=== PATIENT | male | born 1995 | race Caucasian/White ===

== ENCOUNTER 2023-10-29 16:44 | Inpatient (IN) ==
--- NOTE | 2023-10-29 16:52 | ED Triage Note ---
Date of Service October 29, 2023 Provider in Triage Author: Dominique Benton History of Present Illness This patient was briefly evaluated while in triage. An abbreviated physical exam was performed. This patient is a 28-year-old Male who presents to the ED for evaluation sent [place] with LLE DVT was having LLE pain x couple weeks had complicated laceration near left knee end of August +family history of blood clots in father, no personal history Physical Exam GENERAL: NAD in wheelchair CARDIOVASCULAR: RRR RESPIRATORY: CTA EXT: healing scar medial left knee. Mild left calf and thigh TTP, no erythema, increased warmth or pitting edema, no palpable cords. Initial orders for labs and / or imaging were placed and patient was placed in the waiting area until a bed is available. Please see further documentation for the full ED course.
[2023-10-29 17:29] LABS: Basophils # (auto) 0.02 K/uL (0.00-0.20); Basophils % (auto) 0.2 %; Eosinophils # (auto) 0.08 K/uL (0.00-0.50); Eosinophils % (auto) 0.7 %; Hematocrit (blood only) 41.1 % (42.0-52.0); Hemoglobin 13.8 g/dl (14.0-18.0); Immature Granulocytes # (auto) 0.07 K/uL (0.01-0.20); Immature Granulocytes % (auto) 0.6 %; Lymphocytes # (auto) 1.76 K/uL (1.20-3.40); Lymphocytes % (auto) 15.7 %; Mean Corpuscular Hemoglobin 30.1 pg (25.0-34.0); Mean Corpuscular Hgb Conc 33.6 g/dL (32.0-36.0); Mean Corpuscular Volume 89.5 fL (80.0-100.0); Mean Platelet Volume 9.1 fL (9.4-12.4); Monocytes # (auto) 1.04 K/uL (0.11-0.59); Monocytes % (auto) 9.3 %; Neutrophils # (auto) 8.24 K/uL (1.40-6.50); Neutrophils % (auto) 73.5 %; Platelet Count 299 K/uL (130-400); RDW Coefficient of Variation 11.5 % (11.5-14.5); RDW Standard Deviation 37.3 fL (36.4-46.3); Red Blood Count 4.59 M/uL (4.70-6.10); White Blood Count 11.21 K/ul (4.8-10.8)
[2023-10-29 17:49] LABS: Albumin Globulin Ratio 1.1 (0.9-2); Albumin Level 4.6 gm/dl (3.4-5.0); BUN Creatinine Ratio 9.2 (10-20); Calcium 9.9 mg/dl (8.6-10.3); Creatinine Clr Calc Pharmacy 203.1 ml/min; Est GFR (African American) 145.9 ml/min; Est GFR (Non-African American) 125.9 ml/min; Globulin 4.1 gm/dl (2.5-4.0); Potassium 4.1 mmol/L (3.5-5.1); Total Protein 8.7 gm/dl (6.0-8.3)
[2023-10-29 17:54] LABS: Partial Thromboplastin Ratio 1.1; Partial Thromboplastin Time 30 Seconds (21-31); Prothrombin Time 10.6 Seconds (9.0-12.0)
[2023-10-29 17:56] LABS: Troponin I High Sensitivity 3.7 pg/ml (0-20)
[2023-10-29] MEDS: OPTIRAY 320 125ml IV ONE (18:12)
--- NOTE | 2023-10-29 18:27 | CT Scan Report ---
CT ANGIOGRAPHY OF THE CHEST, PULMONARY EMBOLUS PROTOCOL CLINICAL HISTORY: Left lower extremity DVT. COMPARISON STUDY: No previous studies for comparison. TECHNIQUE: Following IV administration of 119 mL of Optiray, helical axial images of the chest were o btained utilizing the pulmonary embolus protocol. Maximal intensity projections and sagittal and cor onal reformats were viewed on an independent 3D workstation. IV contrast was administered without co mplication. Automated exposure control was utilized for the study. A dose lowering technique was ut ilized adhering to the principles of ALARA. CT DOSE: 1065.27 mGy.cm FINDINGS: A saddle pulmonary embolus is noted. Emboli extend into the interlobar pulmonary arteries as well as the bilateral lower lobe, left upper lobe and right middle lobe pulmonary arteries. Severa l additional smaller segmental and subsegmental pulmonary emboli are identified. There are no pulmona ry infarct. The lungs are clear. There is no pneumothorax or pleural effusion. There is no CT evidenc e for right heart strain. Size the heart is normal. Visualized portions of the upper abdomen are unre markable. IMPRESSION: Numerous bilateral pulmonary emboli, including a saddle pulmonary embolus, as detailed a kwame. Moderate to extensive clot burden. No pulmonary infarcts. No CT evidence for right heart strain . ACT 112: Negative or not required by law. Electronically signed by: Quincy Perales M.D. 10/29/2023 6:25 PM
[2023-10-29] MEDS: HEPARIN SOD (PORCINE) 1000 UNIT/ML IV ONE (18:48)
[2023-10-29] MEDS: HEPARIN SODIUM/DEXTROSE 25,000 UNITS/500 ML BAG IV SCH (18:49)
--- NOTE | 2023-10-29 18:57 | History & Physical Report ---
Date of Service October 29, 2023 Assessment & Plan (1) Saddle pulmonary embolus: Plan: Saddle PE CTA with multiple bilateral PE, and saddle PE with moderate to extensive clot burden Troponin normal. No CT evidence of heart strain Patient has not been hypotensive at any point. He is satting 100% on room air. Thrombolysis not indicated Admitted to PCU on heparin gtt. Has associated left lower extremity DVT on prior ultrasound. DVT occurred in setting of prior leg trauma and complicated laceration -Patient has a family history of blood clots in his father. Given extensive burden, patient concern for ongoing anticoagulation needs did order initial hypercoagulable workup. Lupus anticoagulant deferred as heparin was already started Patient is not hypoxic and does not have any respiratory symptoms Lower extremity DVT, left lower leg With prior history of traumatic injury requiring staple repair. Well-healing and no signs of infection at time of bedside visit After injury and repair patient did have leg immobilized and went for 2-hour r nevin up to his camp and back. Likely precipitating factors for his saddle PE above Plan DVT prophylaxis: Heparinized Diet: Regular CODE STATUS: PCU for saddle PE History of Present Illness Primary Care Provider: Brendan Scott MD Gen is a 28-year-old male with unremarkable past medical history who presents to the ER for suspected PEs. Has had left lower extremity pain for several weeks and had a complicated laceration to his left knee at the end of August. CT shows numerous bilateral pulmonary emboli including a saddle PE with moderate to extensive clot burden. No pulmonary infarct. No CT evidence of heart strain. Troponin is normal. He is not hypotensive +History of DVT/PE on fathers side of the family. Not sure about mothers side. - Vaping nicotine and weed. No cigarette use. Vapes daily. ETOH previously daily, now rarely socially. No hx withdrawal - After his leg injury and stitches did hav ea 2 hour trip to his camp in the end of August. Has had the leg relatively immobilized until this past week when he tried to walk on it. Has noticed discomfort and swelling in the calf. No dyspnea. No inspiratory pain. He reports he has not had any limiting shortness of breath at any point, the cause of his presentation was actually bc WEnt to his PCP for severe LE pain, had a US with clot and was referred to the ER Medical History: Reviewed Medications: Reviewed. No home meds. Only takes tylenol Surgical History: Reviewed Family history: Reviewed Allergies: Reviewed. NKDA Code Status: Full Allergies Allergy/AdvReac Type Severity Reaction Status Date / Time No Known Allergies Allergy Verified 10/29/23 19:08 Home Medications Medication Instructions Recorded Confirmed Type Thc Product 1 dose inhalation UD PRN Pain/SLEEP 09/27/21 10/29/23 History acetaminophen 500 mg tablet 1,500 mg PO Q6H PRN Pain 10/29/23 10/29/23 History (Tylenol Extra Strength) Past Med/Surg History Problem List (Updated 10/29/23 @ 19:09 by Ubaldo Estevez MD) Saddle pulmonary embolus Laceration of left leg Periumbilical pain Nausea & vomiting Acute lateral meniscus tear of right knee Corneal abrasion (Acute) Facial laceration (Acute) Rhomboid muscle strain (Acute) Plantar warts (Acute) Pharyngitis (Acute) Patella fracture (Acute) 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 Rhus dermatitis Warts Close exposure to COVID-19 virus Flu-like symptoms Medical History Irregular heart beat Tear of lateral meniscus of right knee, current Heart murmur Surgical History No pertinent past surgical history Family History Grandmother Family history of colon cancer Other No pertinent family history Social History Smoking Status: Current every day smoker Tobacco Type: E-cigarettes / Vaping Age Started Using Tobacco: 20; Cigarettes Per Day: VAPE DAILY/ADVISED NPO; Do You Dip or Chew Tobacco: No; Hx Alcohol Use: Yes Alcohol type: beer, wine and hard liquor Hx Substance Use: No Preferred Language: Portuguese Communication Ability: Effective Visual Impairment: No Limitations Hearing Ability: Normal Net Mobile Developer Required: No Beliefs That Will Affect Care: None marital status: Single Current Living Situation: Parent Current Living Situation Comment: PARENTS current occupational status: employed 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 NAD. Cooperative. HEENT: Atraumatic, normocephalic. Pulm: CTAB A&P. -wheezes, -rales, -rhonchi. Symmetrical chest rise. No increased work of breathing. No respiratory distress. Cardiac: RRR, -mrg. Radial pulses intact and symmetrical. Abdominal: Nontender, nondistended, soft. BS present. Left lower extremity is with a stable repair of prior wound, 2 areas of scab. No surrounding warmth, tenderness or erythema. There is mild left lower extremity swelling. Results & Data Results & Data Vital Signs (Past 12 Hours) Vital Signs Temp Pulse Pulse Resp BP BP Pulse Ox 10/29/23 18:31 75 10/29/23 18:21 77 16 100 10/29/23 18:21 77 16 159/109 H 100 10/29/23 16:50 36.5 C 86 18 135/90 99 O2 Del Method 10/29/23 18:31 10/29/23 18:21 Room Air 10/29/23 18:21 Room Air 10/29/23 16:50 Room Air PG Care Time/CCT Total # of Minutes Spent Total Time Spent with Patient: Total time spent is greater than 50% in coordination of care (as documented) at patient's floor/unit and/or counseling patient: Coding Level of Care Code 70820 INT INP/OBS CARE 3/75MIN Diagnoses Saddle pulmonary embolus I26.92
--- NOTE | 2023-10-29 19:08 | Emergency Department Note ---
Impression & Plan Pulmonary emboli, DVT (deep venous thrombosis), Leukocytosis ED Provider Note NAME: RAFFY ARDON AGE: 28 SEX: M : 1995 ARRIVES VIA: Walk-In INFORMANT: [Patient] ED PROVIDER(S): [Brendan Hall MD] CHIEF COMPLAINT: Abnormal testing HISTORY OF PRESENT ILLNESS: The patient is a 28-year-old male who states that about a month ago, he had stitches in his left leg. It was a significant injury and he was off his leg for a few weeks. 2 weeks ago, he went back to work and began noticing some swelling and discomfort in the left leg. Things persisted. Today, he had an outpatient ultrasound of his leg showing a DVT, he was referred to the ER. The patient states that he is never had a DVT before. He states he is otherwise healthy. He does not feel short of breath, he does not have any chest pain. There has been no cough or congestion. No fever. PMHx/PSHx/Social Hx: See Below PHYSICAL EXAM: GENERAL: Patient is in no acute distress. HEENT: No acute trauma, normocephalic atraumatic, mucous membranes moist, no nasal congestion. NECK: No stridor, no adenopathy, no meningismus, trachea is midline. LUNGS: Clear to auscultation bilaterally, no wheeze, no rhonchi, breath sounds equal. HEART: Without murmurs gallops or rubs, regular rate and rhythm. ABDOMEN: Soft, nontender, no peritonitis. EXTREMITIES: No cyanosis, full range of motion of all the joints without pain or difficulty. The left lower extremity is edematous when compared to the right. NEUROLOGIC: Oriented x 3, no acute motor or sensory deficits, no focal weakness. SKIN: No jaundice, no diaphoresis. DIFFERENTIAL DIAGNOSIS: DVT, PE, coagulopathy, cellulitis, venous insufficiency, among others. EMERGENCY DEPARTMENT PROCEDURES: MEDICAL DECISION MAKING: There is a mild leukocytosis, this could be consistent with infection or just the stress of his presentation. There is a very mild anemia. There was a normal platelet count. No coagulopathy. Sodium slightly low but not in need of emergent correction. There was no renal failure. Lactic acid level was not elevated making severe sepsis unlikely. There was no concerning liver enzyme elevation. Cardiac enzyme testing x 1 was not consistent with acute cardiac injury. ECG showed a sinus rhythm, no ischemia. Chest CT shows multiple pulmonary emboli as well as a saddle pulmonary embolus. Patient did present with findings of left leg DVT by outpatient ultrasound. On exam, the patient was without shortness of breath. He was not hypoxic or toxic. He was not tachycardic. He denied chest pain. He did have some left leg edema. The patient is in need of a hospital stay. He was given an IV heparin bolus and placed on a heparin drip. I did speak with the patient about his findings, I did speak with case management. The on-call hospitalist has been consulted. The patient may be best cared for in the ICU given the DVT and saddle pulmonary embolus. Currently, I do not think he requires transfer to a tertiary center. Anticoagulation is the treatment for his findings. This can be accomplished at our hospital. Prior/Outside records/notes reviewed: None ECG per my interpretation: Indication was PE. The ECG shows a normal sinus rhythm with a rate of 85. There was no acute ST elevation, no PVCs. The QTc was 430. Continuous Cardiac Monitoring per my interpretation: An order was placed for continuous cardiac monitoring. The monitor shows a rate of 75 with normal sinus rhythm. Imaging/x-ray results per my interpretation: Chronic Medical/Social conditions affecting care: None Care/Management discussed with: Case management, the on-call hospitalist. Level of care consideration(s): After review of the information above and other included data: --I believe the patient requires escalation of care to admission Critical Care Note: I have personally spent 48 minutes of critical care time in the direct management of this patient. This includes bedside care, interpretation of diagnostic studies, and testing, discussion with consultants, patient, and family members, and other required patient management activities. This 48 minutes is in excess of all separately billable procedures. 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 Rhus dermatitis Warts Close exposure to COVID-19 virus Flu-like symptoms Medical History Irregular heart beat 2 YR AGO, PT WAS TOLD HAPPENS SOMETIMES, WILL WORK ITSELF OUT - NO PROBLEMS WITH - FOLLOWS PCP Tear of lateral meniscus of right knee, current Heart murmur PATIENT DENIES Surgical History No pertinent past surgical history Family History Grandmother Family history of colon cancer Other No pertinent family history Social History Smoking Status: Never smoker Tobacco Type: E-cigarettes / Vaping and Smokeless Tobacco (Dip or Chew) Age Started Using Tobacco: 20; Cigarettes Per Day: VAPE DAILY/ADVISED NPO; Second Hand Exposure: No; Do You Dip or Chew Tobacco: Yes; Tobacco Cessation Education Requested by Patient: No Hx Alcohol Use: Yes Alcohol type: beer and wine Hx Substance Use: Yes Last Used Substance: Hours (ago) Substance Use Type Other:: THC Preferred Language: [place]an Communication Ability: Effective Visual Impairment: No Limitations Hearing Ability: Normal 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 Beliefs That Will Affect Care: None marital status: Single Current Living Situation: Alone Current Living Situation Comment: PARENTS current occupational status: employed current occupation: [employer] How many Children do You have: 0 How many Children do You have Comment: 0 Other Information That Helps Us Care for You: No Feels Safe at Home: Yes Safety Concerns: Feels Safe At This Time Childhood Exposure to Second-Hand Smoke: No Diet: lactose free and regular caffeine: Yes Dental Care, Regularly: No Physical Activity Frequency: 3-4 Times per Week 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 Seatbelt Use: sometimes Sunscreen Use: No Assistive Devices: None Allergies Allergies Allergy/AdvReac Type Severity Reaction Status Date / Time No Known Allergies Allergy Verified 10/29/23 19:08 Home Meds Home Medications Medication Instructions Recorded Confirmed Thc Product 1 dose inhalation UD PRN Pain/SLEEP 09/27/21 10/29/23 acetaminophen 500 mg tablet 1,500 mg PO Q6H PRN Pain 10/29/23 10/29/23 (Tylenol Extra Strength) Results & Data (ED) Vital Signs Vital Signs - 24 hr 10/29/23 16:50 10/29/23 18:21 10/29/23 18:21 Temperature 36.5 C Temperature Source Temporal Artery Scan Pulse Rate 86 77 Pulse Rate [Apical] 77 Pulse Rate from SpO2 Sensor Pulse Rhythm [Apical] Pulse Strength [Apical] Respiratory Rate 18 16 16 Respiratory Effort / Characteristics Non-Labored Respiratory Depth Normal Respiratory Pattern Regular Blood Pressure 135/90 Blood Pressure [Left Arm] 159/109 H Blood Pressure Mean 105 Blood Pressure Mean [Left Arm] 125 Blood Pressure Position [Left Arm] Pulse Oximetry 99 100 100 Oxygen Delivery Method Room Air Room Air Room Air Sepsis Recent Fever Within 48 Hours No Sepsis New/Unexplained Change in Mental Status N/A Sepsis Action Taken by Nursing No Action Required 10/29/23 18:31 10/29/23 18:42 10/29/23 18:54 Temperature Temperature Source Pulse Rate 75 80 82 Pulse Rate [Apical] Pulse Rate from SpO2 Sensor 79 82 Pulse Rhythm [Apical] Pulse Strength [Apical] Respiratory Rate 21 27 H Respiratory Effort / Characteristics Respiratory Depth Respiratory Pattern Blood Pressure Blood Pressure [Left Arm] Blood Pressure Mean Blood Pressure Mean [Left Arm] Blood Pressure Position [Left Arm] Pulse Oximetry 98 99 Oxygen Delivery Method Sepsis Recent Fever Within 48 Hours Sepsis New/Unexplained Change in Mental Status Sepsis Action Taken by Nursing 10/29/23 18:56 10/29/23 18:56 10/29/23 18:57 Temperature Temperature Source Pulse Rate 83 Pulse Rate [Apical] Pulse Rate from SpO2 Sensor 81 Pulse Rhythm [Apical] Pulse Strength [Apical] Respiratory Rate 22 Respiratory Effort / Characteristics Respiratory Depth Respiratory Pattern Blood Pressure 126/86 126/86 Blood Pressure [Left Arm] Blood Pressure Mean 90 90 Blood Pressure Mean [Left Arm] Blood Pressure Position [Left Arm] Pulse Oximetry 99 Oxygen Delivery Method Sepsis Recent Fever Within 48 Hours Sepsis New/Unexplained Change in Mental Status Sepsis Action Taken by Nursing 10/29/23 19:00 10/29/23 19:00 10/29/23 19:06 Temperature Temperature Source Pulse Rate 77 Pulse Rate [Apical] Pulse Rate from SpO2 Sensor 79 Pulse Rhythm [Apical] Pulse Strength [Apical] Respiratory Rate 16 Respiratory Effort / Characteristics Respiratory Depth Respiratory Pattern Blood Pressure 122/87 122/87 Blood Pressure [Left Arm] Blood Pressure Mean 93 93 Blood Pressure Mean [Left Arm] Blood Pressure Position [Left Arm] Pulse Oximetry 100 Oxygen Delivery Method Sepsis Recent Fever Within 48 Hours Sepsis New/Unexplained Change in Mental Status Sepsis Action Taken by Nursing 10/29/23 19:19 Temperature Temperature Source Pulse Rate Pulse Rate [Apical] 80 Pulse Rate from SpO2 Sensor Pulse Rhythm [Apical] Regular Pulse Strength [Apical] Normal Respiratory Rate 18 Respiratory Effort / Characteristics Non-Labored Spontaneous Respiratory Depth Normal Respiratory Pattern Regular Blood Pressure Blood Pressure [Left Arm] 122/87 Blood Pressure Mean Blood Pressure Mean [Left Arm] 98 Blood Pressure Position [Left Arm] Sitting Pulse Oximetry 98 Oxygen Delivery Method Room Air Sepsis Recent Fever Within 48 Hours Sepsis New/Unexplained Change in Mental Status Sepsis Action Taken by Usp Medications Current Medication List: was personally reviewed by me Laboratory Data Attestation: I reviewed the patient's lab results. 10/29/23 17:13 10/29/23 17:13 Lab Results 10/29/23 Range/Units 17:13 WBC 11.21 H (4.8-10.8) K/ul RBC 4.59 L (4.70-6.10) M/uL Hgb 13.8 L (14.0-18.0) g/dl Hct 41.1 L (42.0-52.0) % MCV 89.5 (80.0-100.0) fL MCH 30.1 (25.0-34.0) pg MCHC 33.6 (32.0-36.0) g/dL RDW Std Deviation 37.3 (36.4-46.3) fL RDW Coeff of Racquel 11.5 (11.5-14.5) % Plt Count 299 (130-400) K/uL MPV 9.1 L (9.4-12.4) fL Immature Gran % (Auto) 0.6 % Neut % (Auto) 73.5 % Lymph % (Auto) 15.7 % [place] % (Auto) 9.3 % Eos % (Auto) 0.7 % Baso % (Auto) 0.2 % Neut # (Auto) 8.24 H (1.40-6.50) K/uL Lymph # (Auto) 1.76 (1.20-3.40) K/uL [place] # (Auto) 1.04 H (0.11-0.59) K/uL Eos # (Auto) 0.08 (0.00-0.50) K/uL Baso # (Auto) 0.02 (0.00-0.20) K/uL Immature Gran # (Auto) 0.07 (0.01-0.20) K/uL PT 10.6 (9.0-12.0) Seconds INR 1.0 (0.9-1.1) APTT 30 (21-31) Seconds PTT Ratio 1.1 Sodium 135 L (136-145) mmol/L Potassium 4.1 (3.5-5.1) mmol/L Chloride 100 (98-107) mmol/L Carbon Dioxide 25 (21-32) mmol/L Anion Gap 10 (3-11) BUN 7 (6-23) mg/dl Creatinine 0.76 (0.6-1.4) mg/dl Est Cr Clr Drug Dosing 203.1 ml/min Est GFR ( Amer) 145.9 ml/min Est GFR (Non-Af Amer) 125.9 ml/min BUN/Creatinine Ratio 9.2 L (10-20) Glucose 80 (70-99(Fasting)) mg/dl Calcium 9.9 (8.6-10.3) mg/dl Total Bilirubin 1.0 (0.2-1.0) mg/dl AST 15 (13-39) U/L ALT 14 (7-52) U/L Alkaline Phosphatase 69 (34-104) U/L Troponin I High Sens 3.7 (0-20) pg/ml Total Protein 8.7 H (6.0-8.3) gm/dl Albumin 4.6 (3.4-5.0) gm/dl Globulin 4.1 H (2.5-4.0) gm/dl Albumin/Globulin Ratio 1.1 (0.9-2) Administered Medications Nicotine (Nicotine 14 Mg/24 Hr Patch) 1 patch TD QAM NAOMI Stop: 11/28/23 21:44 Last Admin: 10/29/23 23:46 Dose: 1 patch Documented By: JT Discontinued Medications Heparin Sodium (Porcine) (Heparin Sod (Porcine) 1000 Unit/Ml) 1 units IV NOW ONE Stop: 10/29/23 18:51 Last Admin: 10/29/23 18:48 Dose: 5,000 units Documented By: CARLOS Co-signed By: LIANNA Heparin Sodium/Dextrose (Heparin Iv Adult Wt-Based Standard W/ Initial Bolus Protocol) 1 each IV NOW STA; Protocol Stop: 10/29/23 18:36 Last Admin: 10/29/23 20:12 Dose: Not Given Documented By: DIAZ Heparin Sodium/Dextrose (Heparin Iv Adult Wt-Based Low-Dose *No* Initial Bolus Protocol) 1 each IV ONE ONE; Protocol Stop: 10/29/23 22:46 Last Admin: 10/29/23 23:48 Dose: 1 each Documented By: CHRISTIANO Heparin Sodium/Dextrose (Heparin Sodium/Dextrose) 25,000 units in 500 mls @ 0 mls/hr IV .Q0M NAOMI; Protocol Stop: 11/28/23 18:59 Last Titration: 10/30/23 00:15 Dose: Infused Documented By: CHRISTIANO Co-signed By: BRADEN Titration: 10/29/23 20:37 Dose: 0 units/hr, 0 mls/hr Documented By: DIAZ Co-signed By: DIONICIO Admin: 10/29/23 18:49 Dose: 1,750 units/hr, 35 mls/hr Documented By: CARLOS Co-signed By: LIANNA Lactated Ringer's (Lr) 1,000 mls @ 999 mls/hr IV .Q1H1M ONE Stop: 10/29/23 21:09 Last Infusion: 10/29/23 20:38 Dose: 0 mls/hr Documented By: Admin: 10/29/23 20:27 Dose: 999 mls/hr Documented By: AIRAM Alteplase, Recombinant 50 mg/ (EMPTY BAG) 50 mls @ 25 mls/hr IV NOW ONE; Protocol Stop: 10/29/23 23:29 Last Admin: 10/29/23 21:56 Dose: 25 mls/hr Documented By: CHRISTIANO Ioversol (Optiray 320 125ml) 119 ml IV ONCE ONE Stop: 10/29/23 18:12 Last Admin: 10/29/23 18:12 Dose: 119 ml Documented By: JUANCARLOS Miscellaneous Information (Dc All Anticoagulants ) 1 each N/A NOW STA Stop: 10/29/23 21:22 Last Admin: 10/29/23 22:30 Dose: 1 each Documented By: CHRISTIANO Sodium Chloride (Sodium Chloride 0.9% 50 Ml Bag) 50 ml IV NOW ONE Stop: 10/29/23 21:31 Last Admin: 10/29/23 21:57 Dose: 50 ml Documented By: CHRISTIANO Imaging Data Radiologist's Impression: Chest CTA 10/29/23 16:53 CT ANGIOGRAPHY OF THE CHEST, PULMONARY EMBOLUS PROTOCOL CLINICAL HISTORY: Left lower extremity DVT. COMPARISON STUDY: No previous studies for comparison. TECHNIQUE: Following IV administration of 119 mL of Optiray, helical axial images of the chest were obtained utilizing the pulmonary embolus protocol. Maximal intensity projections and sagittal and coronal reformats were viewed on an independent 3D workstation. IV contrast was administered without complication. Automated exposure control was utilized for the study. A dose lowering technique was utilized adhering to the principles of ALARA. CT DOSE: 1065.27 mGy.cm FINDINGS: A saddle pulmonary embolus is noted. Emboli extend into the interlobar pulmonary arteries as well as the bilateral lower lobe, left upper lobe and right middle lobe pulmonary arteries. Several additional smaller segmental and subsegmental pulmonary emboli are identified. There are no pulmonary infarct. The lungs are clear. There is no pneumothorax or pleural effusion. There is no CT evidence for right heart strain. Size the heart is normal. Visualized portions of the upper abdomen are unremarkable. IMPRESSION: Numerous bilateral pulmonary emboli, including a saddle pulmonary embolus, as detailed above. Moderate to extensive clot burden. No pulmonary infarcts. No CT evidence for right heart strain. ACT 112: Negative or not required by law. Electronically signed by: Quincy Perales M.D. 10/29/2023 6:25 PM Discharge Plan Visit Data Chief Complaint: Abnormal Labs/Diagnostic Testing Stated Complaint: ABN LABS ED Provider: Brendan Hall Discharge Problem: Pulmonary emboli, DVT (deep venous thrombosis), Leukocytosis Patient Disposition: Admitted As Inpatient Condition: Serious Discharge Instructions Interventions: ED Discharge Assessment Last Done: 10/29/23 21:01 Discharge Problem: Pulmonary emboli Qualifiers: Pulmonary embolism type: saddle Chronicity: acute Acute cor pulmonale presence: unspecified Qualified Code(s): I26.92 - Saddle embolus of pulmonary artery without acute cor pulmonale DVT (deep venous thrombosis) Qualifiers: DVT location: lower extremity Affected thrombotic vein of extremity: u nspecified vein of extremity Chronicity: acute Laterality: left Qualified Code(s): I82.402 - Acute embolism and thrombosis of unspecified deep veins of left lower extremity Leukocytosis Qualifiers: Leukocytosis type: unspecified Qualified Code(s): D72.829 - Elevated white blood cell count, unspecified
[2023-10-29] MEDS: Heparin IV Adult Wt-Based Standard w/ INITIAL Bolus Protocol IV STA (20:12)
[2023-10-29] MEDS: LACTATED RINGER'S 1,000 ML IV ONE (20:27)
--- NOTE | 2023-10-29 21:05 | Billing Data ---
Date of Service October 29, 2023 Coding Level of Care Code 56305 CRITICAL CARE
--- NOTE | 2023-10-29 21:13 | Critical Care Consultation ---
Date of Consultation October 29, 2023 Assessment & Plan (1) Saddle pulmonary embolus: (2) Laceration of left leg: (3) DVT prophylaxis: Plan Reason Critically Ill: 28 YOM with extensive DVT of the left lower leg and now with saddle PE with extension to multiple lobes, segmental and subsegmental areas. With hypotension and increase shock index. Decision for thrombolytics was made and patient will come to ICU for thrombolytic administration and monitoring. Neuro - No acute needs CAM ICU: NEGATIVE Cardiac - Shock- obstructive, Massive/sub Massive PE - Patient with submassive PE, with hypotension and increasing heart rate which resulting in increasing shock index of 1.8 - He is without elevated lactate, troponin, or BNP - STAT ECHO pending- appreciate Dr. Thornton evaluation and rapid interpretation - Heparin stopped at 1958- tPA 50mg administered 2224 - will then follow INR/Anti Xa levels, when in range will restart heparin without bolus - transition to DOAC when appropriate Respiratory - As above - no evidence of respiratory failure at this time GI - No acute needs RENAL/LYTES - No acute needs - No acute needs ENDO - No acute needs HEME - No acute needs - type and screen now ID - No concern at this time for infective process LINES/IV ACCESS - PIV x2 Continue use of these lines DVT PROPHYLAXIS - SCDs to right leg, chemoprophylaxis contraindicated following thrombolytic administration DISPO: ICU for 24 hours post thrombolytics I have personally spent 50 minutes of critical care time in the direct management of this patient. This is a life/limb threatening event. This includes time spent evaluating patient, direct bedside care, chart review, placing orders, interpretation of diagnostic studies, discussion with consultants, patient, and family members, as well as other required patient management activities. This time is exclusive of all separately billable procedures, and separate from and in addition to any other critical care service time. Thank you for allowing us to participate in the care of this patient. Please refer to my attending physician's documentation for any further recommendations. History of Present Illness Reason for Consultation: Thrombolytic administration for submassive/massive PE Requesting Physician: Ubaldo Estevez MD Attending Physician: Dominic Alegria DO History of Present Illness 28 YOM with no significant medical history. Patient came to the EMD today for pain in his left leg and was subsequently found to have saddle PE. Patient reports that he originally injured his left leg while on a diving board on , where he cut his leg on the diving board requiring stitches and was then wrapped. The incision was medial aspect crossing from upper calf across knee into lower thigh. Patient reports he went on a car ride for a bout 2 hours last week, and his leg started getting sore in his calf, and then continued to progress into this Thursday and Thursday, where he noted the pain in his calf, behind his knee, and into his left groin. He noted the leg was swollen as well. He has since had his sutures removed. He did have an ultrasound today for his left leg that was interpreted as extensive occlusive DVT within the left lower extremity involving the distal common femoral vein, superficial femoral vein, popliteal veins and calf veins. On arrival to the ER he was with HR of 91, BP 117/80, temp 36.4, RR 18 and without hypoxia. He underwent CTA of the chest noting a Saddle PE with extension into the interlobar pulmonary arteries, bilateral lower lobes, left upper and right middle lobes as well as other smaller segmental and subsegmental pulmonary emboli. Routine labs were sent with negative troponin. He was initiated on heparin infusion by the EMD physician and hospitalist was called for admission. During the admission p rocess patient was noted to drop his blood pressure to 80s/50s with HR increase to 99 and then to low 100s. At this time discussion was had with myself, the admitting service (Dr. Estevez), and pulmonary critical are attending (Dr. Hills) regarding 1/2 dose thrombolytics therapy. Based on clot burden, extensive DVT, age and current hemodynamic index with shock index of 1.8, decision was felt beneficial to proceed with 1/2 (50mg) dose tPA for his PE. Cardiology has been called as well for STAT ECHO to eval RV function and eval for failure. Patient was presented with treatment options to include standard heparin infusion, thrombolytic therapy and heparin as with above he is was showing signs of hemodynamic instability. We discussed intracranial bleeding risks in general, and with his age and no other co-morbid he is with ICH score of <1.3%. We also discussed risk of with standard therapy as well as with thrombolytic and heparin therapy. He has no history of GI bleeding. We also discussed that interventions and further therapies regarding GI bleeding as well as ICH to include as well as lobsterman disability and further surgeries/procedures. There were no other major or minor exclusion criteria met and patient consented to tPA understanding risks and benefits. Heparin infusion was held at 1959. CODE: FULL Allergies Allergy/AdvReac Type Severity Reaction Status Date / Time No Known Allergies Allergy Verified 10/29/23 19:08 Home Medications Medication Instructions Recorded Confirmed Type Thc Product 1 dose inhalation UD PRN Pain/SLEEP 09/27/21 10/29/23 History acetaminophen 500 mg tablet 1,500 mg PO Q6H PRN Pain 10/29/23 10/29/23 History (Tylenol Extra Strength) Patient History Medical History Irregular heart beat 2 YR AGO, PT WAS TOLD HAPPENS SOMETIMES, WILL WORK ITSELF OUT - NO PROBLEMS WITH - FOLLOWS PCP Tear of lateral meniscus of right knee, current Heart murmur PATIENT DENIES Surgical History No pertinent past surgical history Family History Grandmother Family history of colon cancer Other No pertinent family history Social History Smoking Status: Never smoker Tobacco Type: E-cigarettes / Vaping and Smokeless Tobacco (Dip or Chew) Age Started Using Tobacco: 20; Cigarettes Per Day: VAPE DAILY/ADVISED NPO; Second Hand Exposure: No; Do You Dip or Chew Tobacco: Yes; Tobacco Cessation Education Requested by Patient: No Hx Alcohol Use: Yes Alcohol type: beer and wine Hx Substance Use: Yes Last Used Substance: Hours (ago) Substance Use Type Other:: THC Preferred Language: Urdu Communication Ability: Effective Visual Impairment: No Limitations Hearing Ability: Normal 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 Beliefs That Will Affect Care: None marital status: Single Current Living Situation: Alone Current Living Situation Comment: PARENTS current occupational status: employed current occupation: [employer] How many Children do You have: 0 How many Children do You have Comment: 0 Other Information That Helps Us Care for You: No Feels Safe at Home: Yes Safety Concerns: Feels Safe At This Time Childhood Exposure to Second-Hand Smoke: No Diet: lactose free and regular caffeine: Yes Dental Care, Regularly: No Physical Activity Frequency: 3-4 Times per Week 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 Use: sometimes Sunscreen Use: No Assistive Devices: None Review of Systems Review of Systems: REVIEW OF SYSTEMS: Constitutional: No fever, sweats or chills Eyes: No diplopia, no worsening or blurred vision ENT: normal hearing, no trouble swallowing Respiratory: (+) dyspnea with exertion, No cough, sputum, dyspnea at rest Cardiovascular: (+) chest pain, no tightness or palpitations Abdomen: No pain, nausea, vomiting, diarrhea or constipation Musculoskeletal: (+) left leg pain/fullness, Neurologic: No weakness, numbness/tingling, or balance problems Psychiatric: No anxiety or depression Skin: (+) scar left leg No rash or itch Physical Exam Physical Exam: PHYSICAL EXAM: General: awake, alert, no apparent distress Head: Normocephalic, atraumatic ENT: PERRL, EOMI, no pharyngeal exudate, mucous membranes moist Neuro: AAO x 3, speech clear and appropriate, strength intact bilaterally 5/5, sensation intact and equal all extremities and dermatomes, no pronator drift Chest: equal rise and fall of the chest, no accessory muscle use, no heaves or thrills, decreased in bases on room air, Cardiac: Regular rate and rhythm, telemetry reviewed- sinus tachycardia no ectopy,, skin warm dry, cap refill <3 seconds, peripheral pulses +2 no JVD, no murmur, no edema GI: NABS x 4 quadrants, soft, nontender to palpation, no rebound, guarding or tenderness : Spontaneously voiding, no pain, no CVA tenderness, Skin: left leg healing incision with old scrape scars, no rash or erythema Results & Data Results & Data Vital Signs (Past 12 Hours) Vital Signs Temp Pulse Pulse Resp BP BP Pulse Ox 10/29/23 21:01 10/29/23 20:57 115 H 16 132/72 99 10/29/23 20:06 99 H 18 88/54 L 99 10/29/23 19:19 80 18 122/87 98 10/29/23 18:31 75 10/29/23 18:21 77 16 100 10/29/23 18:21 77 16 159/109 H 100 10/29/23 16:50 36.5 C 86 18 135/90 99 O2 Del Method 10/29/23 21:01 Room Air 10/29/23 20:57 10/29/23 20:06 Room Air 10/29/23 19:19 Room Air 10/29/23 18:31 10/29/23 18:21 Room Air 10/29/23 18:21 Room Air 10/29/23 16:50 Room Air Laboratory Results Abnormal lab results 10/29/23 10/29/23 Range/Units 17:13 20:24 WBC 11.21 H (4.8-10.8) K/ul RBC 4.59 L (4.70-6.10) M/uL Hgb 13.8 L (14.0-18.0) g/dl Hct 41.1 L (42.0-52.0) % MPV 9.1 L (9.4-12.4) fL Neut # (Auto) 8.24 H (1.40-6.50) K/uL [place] # (Auto) 1.04 H (0.11-0.59) K/uL Fibrinogen 730 H (184-400) mg/dl Sodium 135 L (136-145) mmol/L BUN/Creatinine Ratio 9.2 L (10-20) Total Protein 8.7 H (6.0-8.3) gm/dl Globulin 4.1 H (2.5-4.0) gm/dl Diagnostic Findings Chest CTA 10/29/23 16:53 CT ANGIOGRAPHY OF THE CHEST, PULMONARY EMBOLUS PROTOCOL CLINICAL HISTORY: Left lower extremity DVT. COMPARISON STUDY: No previous studies for comparison. TECHNIQUE: Following IV administration of 119 mL of Optiray, helical axial images of the chest were obtained utilizing the pulmonary embolus protocol. Maximal intensity projections and sagittal and coronal reformats were viewed on an independent 3D workstation. IV contrast was administered without complication. Automated exposure control was utilized for the study. A dose lowering technique was utilized adhering to the principles of ALARA. CT DOSE: 1065.27 mGy.cm FINDINGS: A saddle pulmonary embolus is noted. Emboli extend into the interlobar pulmonary arteries as well as the bilateral lower lobe, left upper lobe and right middle lobe pulmonary arteries. Several additional smaller segmental and subsegmental pulmonary emboli are identified. There are no pulmonary infarct. The lungs are clear. There is no pneumothorax or pleural effusion. There is no CT evidence for right heart strain. Size the heart is normal. Visualized portions of the upper abdomen are unremarkable. IMPRESSION: Numerous bilateral pulmonary emboli, including a saddle pulmonary embolus, as detailed above. Moderate to extensive clot burden. No pulmonary infarcts. No CT evidence for right heart strain. ACT 112: Negative or not required by law. Electronically signed by: Quincy Perales M.D. 10/29/2023 6:25 PM Medications Administered Home Medications Thc Product 1 dose inhalation UD PRN Pain/SLEEP 09/27/21 [History Confirmed 10/29/23] acetaminophen 500 mg tablet (Tylenol Extra Strength) 1,500 mg PO Q6H PRN Pain 10/29/23 [History Confirmed 10/29/23] Active Medications Acetaminophen (Acetaminophen 325 Mg Tab) 650 mg PO Q4H PRN PRN Reason: Pain or Fever Stop: 11/28/23 21:20 Alteplase, Recombinant 50 mg/ (EMPTY BAG) 50 mls @ 25 mls/hr IV NOW ONE; Protocol Stop: 10/29/23 23:29 Miscellaneous (Remove Nicoderm Patch) 1 each N/A DAILY@0859 [facility] Stop: 11/29/23 08:58 Nicotine (Nicotine 14 Mg/24 Hr Patch) 1 patch TD QAM [facility] Stop: 11/28/23 21:44 Ondansetron HCl (Ondansetron Inj 2 Mg/Ml 2 Ml Vial) 4 mg IV Q6H PRN PRN Reason: Nausea Stop: 11/28/23 21:20 Coding Level of Care Code 02473 CRITICAL CARE 1ST 30-74M Diagnoses Saddle pulmonary embolus I26.92 Laceration of left leg S81.812A DVT prophylaxis Z29.9
[2023-10-29] MEDS ORDERED: ONDANSETRON INJ 2 MG/ML 2 ML VIAL IV PRN (21:21)
[2023-10-29 21:22] LABS: Fibrinogen 730 mg/dl (184-400)
[2023-10-29] MEDS: ALTEPLASE, RECOMBINANT 50 MG in EMPTY BAG 0 ML IV ONE (21:56)
[2023-10-29] MEDS: SODIUM CHLORIDE 0.9% 50 ML BAG IV ONE (21:57)
[2023-10-29 22:25] LABS: ANTI-Xa, UFH(UnfractionatedHep < 0.10 IU/ml (0.3-0.7); Prothrombin Time 10.7 Seconds (9.0-12.0)
[2023-10-29] MEDS: DC ALL ANTICOAGULANTS STA (22:30)
[2023-10-29] MEDS: PRIMARY PLUMSET, PE LINED TUBING, 113 IN, NON-DEHP (2260-0500) IV STA (22:31)
--- NOTE | 2023-10-29 22:46 | Cardiology Consultation ---
Date of Consultation October 29, 2023 Assessment & Plan (1) Acute cor pulmonale: (2) Saddle pulmonary embolus: (3) Pulmonary hypertension: (4) DVT of lower limb, acute: Plan agree with current treatment. Agree with TPa to prevent oysterman sequela of PE and pulm HTN. Would do f/u ECHO in 4-6 weeks to reassess PA pressures and RV function Will require NOAC x 3-6 months minimum I'd be happy to f/u as outpatient to facilitate repeat dopplers and ECHO Thank you for allowing me to participate in the care of this very nice young man. History of Present Illness Reason for Consultation: acute saddle pulmonary embolus with hypotension Attending Physician: Ubaldo Estevez MD History of Present Illness Gen is a very nice 28 y/o previously well who suffered a diving board injury back in August and resulted in severe laceration and multiple sutures. He has been not ambulating to a normal extent since this injury. Earlier today he had pain in his left calf and was massaging his leg. The pain got worse and he came to the ER. Doppler showed extensive DVT of the left lower leg and now with saddle PE with extension to multiple lobes, segmental and subsegmental areas. Amazingly denies CP or SOB and appeared hemodynamically stable and then developed hypotension and increase shock with concern for RV strain and acute cor pulmonale. Decision for thrombolytics was made and patient will come to ICU for thrombolytic administration and monitoring. I was asked to supervise stat ECHO for RV assessment of the PE. His LV size and function appear normal. The RV is mildly dilated, The LV septum is NOT dyskinetic, however the PA pressures are about 35-40 which are elevated mild-moderately given age 28 y/o. Thrombolytics appear to be appropriate in the circumstance. ECHO findings and tpa discussed with credit administration specialist as well as family at the bedside. Allergies Allergy/AdvReac Type Severity Reaction Status Date / Time No Known Allergies Allergy Verified 10/29/23 19:08 Home Medications Medication Instructions Recorded Confirmed Type Thc Product 1 dose inhalation UD PRN Pain/SLEEP 09/27/21 10/29/23 History acetaminophen 500 mg tablet 1,500 mg PO Q6H PRN Pain 10/29/23 10/29/23 History (Tylenol Extra Strength) Patient History Medical History Irregular heart beat 2 YR AGO, PT WAS TOLD HAPPENS SOMETIMES, WILL WORK ITSELF OUT - NO PROBLEMS WITH - FOLLOWS PCP Tear of lateral meniscus of right knee, current Heart murmur PATIENT DENIES Surgical History No pertinent past surgical history Family History Grandmother Family history of colon cancer Other No pertinent family history Social History Smoking Status: Never smoker Tobacco Type: E-cigarettes / Vaping and Smokeless Tobacco (Dip or Chew) Age Started Using Tobacco: 20; Cigarettes Per Day: VAPE DAILY/ADVISED NPO; Second Hand Exposure: No; Do You Dip or Chew Tobacco: Yes; Tobacco Cessation Education Requested by Patient: No Hx Alcohol Use: Yes Alcohol type: beer and wine Hx Substance Use: Yes Last Used Substance: Hours (ago) Substance Use Type Other:: THC Preferred Language: Malagasy Communication Ability: Effective Visual Impairment: No Limitations Hearing Ability: Normal Manager Technology Required: No Beliefs That Will Affect Care: None marital status: Single Current Living Situation: Alone Current Living Situation Comment: PARENTS current occupational status: employed current occupation: [employer] How many Children do You have: 0 How many Children do You have Comment: 0 Other Information That Helps Us Care for You: No Feels Safe at Home: Yes Safety Concerns: Feels Safe At This Time Childhood Exposure to Second-Hand Smoke: No Diet: lactose free and regular caffeine: Yes Dental Care, Regularly: No Physical Activity Frequency: 3-4 Times per Week 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 Use: sometimes Sunscreen Use: No Assistive Devices: None Review of Systems Review of Systems: All systems reviewed & are unremarkable except as noted in HPI & below Physical Exam Physical Exam: AAO x 3 in NAD Neck: no JVD Respiratory: normal BS b/l Cardiovascular: heart regular no murmurs appreciated Skin: left leg with edema; still with eschar; sutures well healed and approximated Results & Data Vital Signs (Past 12 Hours) Vital Signs Temp Pulse Pulse Resp BP BP Pulse Ox 10/29/23 22:12 37.5 C 10/29/23 21:01 125/77 10/29/23 21:01 125/77 10/29/23 21:01 10/29/23 21:00 93 H 14 98 10/29/23 20:57 115 H 16 132/72 99 10/29/23 20:33 132/72 10/29/23 20:33 132/72 10/29/23 20:12 93 H 23 99 10/29/23 20:11 124/53 L 10/29/23 20:11 124/53 L 10/29/23 20:06 99 H 18 88/54 L 99 10/29/23 20:03 74 24 99 10/29/23 20:00 80 19 99 10/29/23 20:00 88/54 L 10/29/23 20:00 88/54 L 10/29/23 19:19 80 18 122/87 98 10/29/23 19:06 77 16 100 10/29/23 19:00 122/87 10/29/23 19:00 122/87 10/29/23 18:57 83 22 99 10/29/23 18:56 126/86 10/29/23 18:56 126/86 10/29/23 18:54 82 27 H 99 10/29/23 18:42 80 21 98 10/29/23 18:31 75 10/29/23 18:21 77 16 100 10/29/23 18:21 77 16 159/109 H 100 10/29/23 16:50 36.5 C 86 18 135/90 99 O2 Del Method 10/29/23 22:12 10/29/23 21:01 10/29/23 21:01 10/29/23 21:01 Room Air 10/29/23 21:00 10/29/23 20:57 10/29/23 20:33 10/29/23 20:33 10/29/23 20:12 10/29/23 20:11 10/29/23 20:11 10/29/23 20:06 Room Air 10/29/23 20:03 10/29/23 20:00 10/29/23 20:00 10/29/23 20:00 10/29/23 19:19 Room Air 10/29/23 19:06 10/29/23 19:00 10/29/23 19:00 10/29/23 18:57 10/29/23 18:56 10/29/23 18:56 10/29/23 18:54 10/29/23 18:42 10/29/23 18:31 10/29/23 18:21 Room Air 10/29/23 18:21 Room Air 10/29/23 16:50 Room Air Laboratory Results Abnormal lab results 10/29/23 10/29/23 10/29/23 Range/Units 17:13 20:24 21:40 WBC 11.21 H (4.8-10.8) K/ul RBC 4.59 L (4.70-6.10) M/uL Hgb 13.8 L (14.0-18.0) g/dl Hct 41.1 L (42.0-52.0) % MPV 9.1 L (9.4-12.4) fL Neut # (Auto) 8.24 H (1.40-6.50) K/uL [place] # (Auto) 1.04 H (0.11-0.59) K/uL Fibrinogen 730 H (184-400) mg/dl Heparin Anti-Xa, Unfract < 0.10 L (0.3-0.7) IU/ml Sodium 135 L (136-145) mmol/L BUN/Creatinine Ratio 9.2 L (10-20) Total Protein 8.7 H (6.0-8.3) gm/dl Globulin 4.1 H (2.5-4.0) gm/dl ECG Additional Comments: NSR normal ECG
[2023-10-29] MEDS: NICOTINE 14 MG/24 HR PATCH TD SCH (23:46)
[2023-10-29] MEDS: Heparin IV Adult Wt-Based Low-Dose *NO* INITIAL Bolus Protocol IV ONE (23:48)
[2023-10-30 01:13] LABS: ANTI-Xa, UFH(UnfractionatedHep < 0.10 IU/ml (0.3-0.7)
[2023-10-30] MEDS: HEPARIN SODIUM/DEXTROSE 25,000 UNITS/500 ML BAG IV SCH ×2 (01:47→10:55)
[2023-10-30 02:49] LABS: ANTI-Xa, UFH(UnfractionatedHep < 0.10 IU/ml (0.3-0.7)
[2023-10-30 04:05] LABS: Basophils # (auto) 0.04 K/uL (0.00-0.20); Basophils % (auto) 0.4 %; Eosinophils # (auto) 0.06 K/uL (0.00-0.50); Eosinophils % (auto) 0.6 %; Hematocrit (blood only) 37.9 % (42.0-52.0); Hemoglobin 12.9 g/dl (14.0-18.0); Immature Granulocytes # (auto) 0.05 K/uL (0.01-0.20); Immature Granulocytes % (auto) 0.5 %; Lymphocytes # (auto) 1.87 K/uL (1.20-3.40); Lymphocytes % (auto) 17.7 %; Mean Corpuscular Hemoglobin 30.1 pg (25.0-34.0); Mean Corpuscular Volume 88.6 fL (80.0-100.0); Mean Platelet Volume 9.4 fL (9.4-12.4); Monocytes # (auto) 1.09 K/uL (0.11-0.59); Monocytes % (auto) 10.3 %; Neutrophils # (auto) 7.48 K/uL (1.40-6.50); Neutrophils % (auto) 70.5 %; Platelet Count 267 K/uL (130-400); RDW Coefficient of Variation 11.3 % (11.5-14.5); RDW Standard Deviation 36.4 fL (36.4-46.3); Red Blood Count 4.28 M/uL (4.70-6.10); White Blood Count 10.59 K/ul (4.8-10.8)
[2023-10-30 04:15] LABS: Anion Gap 9 (3-11); BUN Creatinine Ratio 8.5 (10-20); Blood Urea Nitrogen 6 mg/dl (6-23); Calcium 9.1 mg/dl (8.6-10.3); Carbon Dioxide 25 mmol/L (21-32); Chloride 102 mmol/L (98-107); Creatinine Clr Calc Pharmacy 219.5 ml/min; Est GFR (African American) > 150.0 ml/min; Est GFR (Non-African American) 129.5 ml/min; Glucose 99 mg/dl (70-99(Fasting)); Magnesium 2.1 mg/dl (1.7-2.4); Potassium 3.8 mmol/L (3.5-5.1); Sodium 136 mmol/L (136-145)
--- NOTE | 2023-10-30 07:02 | Hospitalist Progress Note ---
Date of Service October 30, 2023 Assessment & Plan (1) Acute cor pulmonale: (2) Saddle pulmonary embolus: (3) Pulmonary hypertension: (4) DVT of lower limb, acute: Plan 1) Saddle pulmonary embolus Saddle PE CTA with multiple bilateral PE, and saddle PE with moderate to extensive clot burden Troponin normal, no CT evidence of heart strain upon admission Patient not hypotensive at admission, O2Sat 100%, thrombolysis not indicated Admitted to PCU on heparin gtt. - Patient hypotensive (88/54) later, same night of admission, given alteplase, 50 mg, IV, ONCE Has associated left lower extremity DVT on prior ultrasound. DVT occurred in setting of prior leg trauma and complicated laceration - Patient has a family history of blood clots x 2 in his father (both unprovoked). Given extensive burden, patient would be a concern for ongoing anticoagulation needs - ordered initial hypercoagulable workup pending (Lupus anticoagulant deferred as heparin was already started) - patient will need to be on anticoagulation for at least 3 months - F/U as outpt with monitoring for risk of recurrence (worsening CP, dyspnea) or bleeding - patient currently without health insurance, options include Coumadin, Pradaxa, Xarelto (patient coupons w/ Cardiology, generic version available in Jan 2024) 2) Lower extremity DVT, left lower leg - DVT confirms it involves distal common femoral vein, superficial femoral vein, popliteal vein With prior history of traumatic injury requiring staple repair. Non- erythematous, non-edematous, and no signs of infection After injury and repair patient did have leg immobilized and went for 2-hour ride up to his camp and back. Likely precipitating factors for his saddle PE above. Patient also used hand-held massager to massage l. groin muscle before aware of DVT. Plan DVT prophylaxis: Heparinized Diet: Regular CODE STATUS: Full code Disposition: PCU for saddle PE Admission and Anticipated Discharge Date Admission Date: October 29, 2023 Supervising Physician Co-Signing Physician Notes I personally examined the patient and verified all francisco points of history and exam, discussed case, and agree with decision making with Dr Mccoy feeling good overall. leg hurts. vitals noted nad heent nc at mmm breathing unlabored no accessory muscles good effort no focal neuro deficits saddle PE w hemodynamic instability now much more stable post thrombolytics - ongoing anticoagulation, supportive care. anticipate transition to DOAC - due to lack of insurance, we worked with case management and for now plan will be: -DOAC w xarelto because (a) coupon for first month available (b) likely to have samples available from offices and (c) xarelto slated to become generic by ~late december. if anything fails with this plan, backup will be transition to dabagatrin as it is currently generic and GoodRx shows it be about $60/month, which he can afford. for now on heparin gtt post thrombolysis. otherwise as above Subjective Patient is doing well, sitting up in bed, without any concerning overnight events. No dizziness, lightheadedness, or recurrent hypotensive episodes since last night. Patient endorsing some residual left thigh/groin pain but still with out any significant chest pain. Patient states that he does have a cousin with Factor V Leiden mutation (pt's mother corroborated this, did not know whether it was homo- or heterozygous). Regarding his father's Hx of blood clots, his dad has had them twice, neither time were they provoked, and each time, he was on Lovenox temporarily following the clots, but did not remain on Lovenox therapy long-term. Review of Systems Constitutional: no fever, no chills, no fatigue and no weakness Respiratory: no cough, no chest congestion, no dyspnea and no hemoptysis Cardiovascular: no chest pain and no palpitations Additional Comments: no pleuritic chest pain Gastrointestinal: no abdominal pain, no nausea and no vomiting Genitourinary: no dysuria, no urinary frequency or no flank pain Musculoskeletal: + myalgia (l. groin pain) Neurologic: + tingling and + numbness (some numbness and tingling in l. groin, mostly resolved) Physical Exam Constitutional: WD/WN, vitals as above Respiratory: normal respiratory effort, lungs clear to auscultation Cardiovascular: RRR, no murmur, no edema Extremities: normal capillary refill; no pedal edema Chest (Breasts): Additional Comments: No chest tenderness w/ palpation Gastrointestinal (Abdomen): normal bowel sounds, soft, nontender, no hepatosplenomegaly Psychiatric: A+Ox3, euthymic affect Results & Data Results & Data Vital Signs (Past 12 Hours) Vital Signs Temp Pulse Pulse Resp BP BP Pulse Ox 10/30/23 06:00 153/89 H 10/30/23 06:00 153/89 H 10/30/23 06:00 70 25 H 98 10/30/23 05:00 69 34 H 96 10/30/23 05:00 152/79 H 10/30/23 05:00 152/79 H 10/30/23 04:03 97 H 10 L 99 10/30/23 04:00 145/95 H 10/30/23 04:00 37.1 C 10/30/23 03:57 72 28 H 98 10/30/23 03:00 70 24 99 10/30/23 03:00 156/100 H 10/30/23 02:06 67 31 H 97 10/30/23 02:00 156/83 H 10/30/23 02:00 156/83 H 10/30/23 01:45 71 28 H 97 10/30/23 01:01 148/82 H 10/30/23 01:01 148/82 H 10/30/23 01:01 148/82 H 10/30/23 01:00 76 14 98 10/30/23 00:09 81 16 96 10/30/23 00:01 164/95 H 10/30/23 00:00 36.9 C 10/30/23 00:00 76 10/29/23 23:57 86 20 98 10/29/23 23:42 75 14 96 10/29/23 23:31 147/107 H 10/29/23 23:27 74 26 H 98 10/29/23 23:00 81 24 97 10/29/23 22:53 79 10/29/23 22:12 37.5 C 10/29/23 22:09 88 18 96 10/29/23 21:21 10/29/23 21:01 125/77 10/29/23 21:01 125/77 10/29/23 21:01 10/29/23 21:00 93 H 14 98 10/29/23 20:57 115 H 16 132/72 99 10/29/23 20:33 132/72 10/29/23 20:33 132/72 10/29/23 20:12 93 H 23 99 10/29/23 20:11 124/53 L 10/29/23 20:11 124/53 L 08/29/24 20:06 99 H 18 88/54 L 99 10/29/23 20:03 74 24 99 10/29/23 20:00 80 19 99 10/29/23 20:00 88/54 L 10/29/23 20:00 88/54 L 10/29/23 19:19 80 18 122/87 98 10/29/23 19:06 77 16 100 10/29/23 19:00 122/87 10/29/23 19:00 122/87 Pulse Ox O2 Del Method O2 Del Method 10/30/23 06:00 10/30/23 06:00 10/30/23 06:00 10/30/23 05:00 10/30/23 05:00 10/30/23 05:00 10/30/23 04:03 10/30/23 04:00 10/30/23 04:00 10/30/23 03:57 10/30/23 03:00 10/30/23 03:00 10/30/23 02:06 10/30/23 02:00 10/30/23 02:00 10/30/23 01:45 10/30/23 01:01 10/30/23 01:01 10/30/23 01:01 10/30/23 01:00 10/30/23 00:09 10/30/23 00:01 10/30/23 00:00 10/30/23 00:00 10/29/23 23:57 10/29/23 23:42 10/29/23 23:31 10/29/23 23:27 10/29/23 23:00 10/29/23 22:53 10/29/23 22:12 10/29/23 22:09 10/29/23 21:21 97 Room Air 10/29/23 21:01 10/29/23 21:01 10/29/23 21:01 Room Air 10/29/23 21:00 10/29/23 20:57 10/29/23 20:33 10/29/23 20:33 10/29/23 20:12 10/29/23 20:11 10/29/23 20:11 10/29/23 20:06 Room Air 10/29/23 20:03 10/29/23 20:00 10/29/23 20:00 10/29/23 20:00 10/29/23 19:19 Room Air 10/29/23 19:06 10/29/23 19:00 10/29/23 19:00
[2023-10-30 08:33] LABS: ANTI-Xa, UFH(UnfractionatedHep < 0.10 IU/ml (0.3-0.7)
--- NOTE | 2023-10-30 08:40 | Cardiology Progress Note ---
Date of Service October 30, 2023 Assessment & Plan (1) Acute cor pulmonale: (2) Saddle pulmonary embolus: (3) Pulmonary hypertension: (4) DVT of lower limb, acute: Plan Mr. Hollis is stable. He is post Tpa administration, now on a heparin drip. His initial echo demonstrated normal LVF and size, mildly dilated RV, LV septum was not dyskinetic, PA pressures moderately elevated at 35-40 mmHg. He will need a follow up echo in 4-6 weeks to reassess PA pressures and RV function His blood pressure is no longer hypotensive and is slightly hypertensive. aagree with current treatment. Agree with TPa to prevent fpc sequela of PE and pulm HTN. Would do f/u ECHO in 4-6 weeks to reassess PA pressures and RV function We can follow with him outpatient and set up his repeat echo. Admission and Anticipated Discharge Date Admission Date: October 29, 2023 Subjective Mr. Hollis is comfortable this morning. No chest pain or sob. He is in sinus rhythm on the monitor. Review of Systems Review of Systems: All systems reviewed & are unremarkable except as noted in HPI & below Physical Exam Constitutional: WD/WN, vitals as above Respiratory: normal respiratory effort, lungs clear to auscultation Cardiovascular: RRR, no murmur, no edema Skin: no rashes, warm and dry Neurologic: moves all extremities and awake Psychiatric: A+Ox3, euthymic affect Results & Data Vital Signs (Past 12 Hours) Vital Signs Temp Pulse Pulse Resp BP BP Pulse Ox 10/30/23 07:43 36.9 C 84 18 159/88 H 98 10/30/23 07:00 149/89 H 10/30/23 07:00 149/89 H 10/30/23 07:00 149/89 H 10/30/23 07:00 94 H 19 98 10/30/23 06:48 75 15 97 10/30/23 06:00 153/89 H 10/30/23 06:00 153/89 H 10/30/23 06:00 70 25 H 98 10/30/23 05:00 69 34 H 96 10/30/23 05:00 152/79 H 10/30/23 05:00 152/79 H 10/30/23 04:03 97 H 10 L 99 10/30/23 04:00 145/95 H 10/30/23 04:00 37.1 C 10/30/23 03:57 72 28 H 98 10/30/23 03:00 70 24 99 10/30/23 03:00 156/100 H 10/30/23 02:06 67 31 H 97 10/30/23 02:00 156/83 H 10/30/23 02:00 156/83 H 10/30/23 01:45 71 28 H 97 10/30/23 01:01 148/82 H 10/30/23 01:01 148/82 H 10/30/23 01:01 148/82 H 10/30/23 01:00 76 14 98 10/30/23 00:09 81 16 96 10/30/23 00:01 164/95 H 10/30/23 00:00 36.9 C 10/30/23 00:00 76 10/29/23 23:57 86 20 98 10/29/23 23:42 75 14 96 10/29/23 23:31 147/107 H 10/29/23 23:27 74 26 H 98 10/29/23 23:00 81 24 97 10/29/23 22:53 79 10/29/23 22:12 37.5 C 10/29/23 22:09 88 18 96 10/29/23 21:21 10/29/23 21:01 125/77 10/29/23 21:01 125/77 10/29/23 21:01 10/29/23 21:00 93 H 14 98 10/29/23 20:57 115 H 16 132/72 99 Pulse Ox O2 Del Method O2 Del Method 10/30/23 07:43 Room Air 10/30/23 07:00 10/30/23 07:00 10/30/23 07:00 10/30/23 07:00 10/30/23 06:48 10/30/23 06:00 10/30/23 06:00 10/30/23 06:00 10/30/23 05:00 10/30/23 05:00 10/30/23 05:00 10/30/23 04:03 10/30/23 04:00 10/30/23 04:00 10/30/23 03:57 10/30/23 03:00 10/30/23 03:00 10/30/23 02:06 10/30/23 02:00 10/30/23 02:00 10/30/23 01:45 10/30/23 01:01 10/30/23 01:01 10/30/23 01:01 10/30/23 01:00 10/30/23 00:09 10/30/23 00:01 10/30/23 00:00 10/30/23 00:00 10/29/23 23:57 10/29/23 23:42 10/29/23 23:31 10/29/23 23:27 10/29/23 23:00 10/29/23 22:53 10/29/23 22:12 10/29/23 22:09 10/29/23 21:21 97 Room Air 10/29/23 21:01 10/29/23 21:01 10/29/23 21:01 Room Air 10/29/23 21:00 10/29/23 20:57
[2023-10-30] MEDS ORDERED: HEPARIN SOD (PORCINE) 1000 UNIT/ML IV ONE (08:48)
[2023-10-30] MEDS: HEPARIN IV BOLUS 4,500 UNITS in SYRINGE 0 ML IV ONE (09:21)
[2023-10-30] MEDS ORDERED: Heparin IV Adult Wt-Based Standard *NO* INITIAL Bolus Protocol IV SCH (09:59)
--- NOTE | 2023-10-30 10:08 | Critical Care Progress Note ---
Date of Service October 30, 2023 Assessment & Plan (1) Saddle pulmonary embolus: (2) Laceration of left leg: (3) DVT prophylaxis: Plan Reason Critically Ill: 28 YOM with extensive DVT of the left lower leg and now with saddle PE with extension to multiple lobes, segmental and subsegmental areas. With hypotension and increase shock index. Decision for thrombolytics was made and patient will come to ICU for thrombolytic administration and monitoring. Neuro - No acute needs CAM ICU: NEGATIVE Cardiac - Echo pending given significant PE and DVT. Hemodynamically stable. Continue heparin infusion. This is being titrated by pharmacy. Would recommend 6 months of anticoagulation. Can likely transition to DOAC tomorrow. Respiratory - As above - no evidence of respiratory failure at this time GI - No acute needs RENAL/LYTES - No acute needs - No acute needs ENDO - No acute needs HEME - No acute needs - type and screen now ID - No concern at this time for infective process LINES/IV ACCESS - PIV x2 Continue use of these lines DVT PROPHYLAXIS -heparin infusion. DISPO: Likely downgrade later today. Admission and Anticipated Discharge Date Admission Date: October 29, 2023 Subjective Denies any shortness of breath or chest pain. No evidence of bleeding. Tolerating heparin infusion. Review of Systems Review of Systems: All systems reviewed & are unremarkable except as noted in HPI & below Physical Exam Physical Exam: PHYSICAL EXAM: General: awake, alert, no apparent distress Head: Normocephalic, atraumatic ENT: PERRL, EOMI, no pharyngeal exudate, mucous membranes moist Neuro: AAO x 3, speech clear and appropriate, strength intact bilaterally 5/5, sensation intact and equal all extremities and dermatomes, no pronator drift Chest: equal rise and fall of the chest, no accessory muscle use, no heaves or thrills, decreased in bases on room air, Cardiac: Regular rate and rhythm, telemetry reviewed- sinus tachycardia no ectopy,, skin warm dry, cap refill <3 seconds, peripheral pulses +2 no JVD, no murmur, no edema GI: NABS x 4 quadrants, soft, nontender to palpation, no rebound, guarding or tenderness : Spontaneously voiding, no pain, no CVA tenderness, Skin: left leg healing incision with old scrape scars, no rash or erythema Results & Data Results & Data Vital Signs (Past 12 Hours) Vital Signs Temp Pulse Pulse Resp BP BP Pulse Ox 10/30/23 09:00 153/80 H 10/30/23 09:00 74 22 99 10/30/23 08:09 77 21 98 10/30/23 08:00 143/83 H 10/30/23 07:54 78 20 98 10/30/23 07:43 36.9 C 84 18 159/88 H 98 10/30/23 07:00 149/89 H 10/30/23 07:00 149/89 H 10/30/23 07:00 149/89 H 10/30/23 07:00 149/89 H 10/30/23 07:00 149/89 H 10/30/23 07:00 94 H 19 98 10/30/23 06:48 76 10/30/23 06:48 75 15 97 10/30/23 06:00 153/89 H 10/30/23 06:00 153/89 H 10/30/23 06:00 70 25 H 98 10/30/23 05:00 69 34 H 96 10/30/23 05:00 152/79 H 10/30/23 05:00 152/79 H 10/30/23 04:03 97 H 10 L 99 10/30/23 04:00 145/95 H 10/30/23 04:00 37.1 C 10/30/23 03:57 72 28 H 98 10/30/23 03:00 70 24 99 10/30/23 03:00 156/100 H 10/30/23 02:06 67 31 H 97 10/30/23 02:00 156/83 H 10/30/23 02:00 156/83 H 10/30/23 01:45 71 28 H 97 10/30/23 01:01 148/82 H 10/30/23 01:01 148/82 H 10/30/23 01:01 148/82 H 10/30/23 01:00 76 14 98 10/30/23 00:09 81 16 96 10/30/23 00:01 164/95 H 10/30/23 00:00 36.9 C 10/30/23 00:00 76 10/29/23 23:57 86 20 98 10/29/23 23:42 75 14 96 10/29/23 23:31 147/107 H 10/29/23 23:27 74 26 H 98 10/29/23 23:00 81 24 97 10/29/23 22:53 79 10/29/23 22:12 37.5 C 10/29/23 22:09 88 18 96 O2 Del Method 10/30/23 09:00 10/30/23 09:00 10/30/23 08:09 10/30/23 08:00 10/30/23 07:54 10/30/23 07:43 Room Air 10/30/23 07:00 10/30/23 07:00 10/30/23 07:00 10/30/23 07:00 10/30/23 07:00 10/30/23 07:00 10/30/23 06:48 10/30/23 06:48 10/30/23 06:00 10/30/23 06:00 10/30/23 06:00 10/30/23 05:00 10/30/23 05:00 10/30/23 05:00 10/30/23 04:03 10/30/23 04:00 10/30/23 04:00 10/30/23 03:57 10/30/23 03:00 10/30/23 03:00 10/30/23 02:06 10/30/23 02:00 10/30/23 02:00 10/30/23 01:45 10/30/23 01:01 10/30/23 01:01 10/30/23 01:01 10/30/23 01:00 10/30/23 00:09 10/30/23 00:01 10/30/23 00:00 10/30/23 00:00 10/29/23 23:57 10/29/23 23:42 10/29/23 23:31 10/29/23 23:27 10/29/23 23:00 10/29/23 22:53 10/29/23 22:12 10/29/23 22:09 Coding Level of Care Code 58724 SUB INP/OBS CARE 235MIN Diagnoses Saddle pulmonary embolus I26.92 Laceration of left leg S81.812A DVT prophylaxis Z29.9
[2023-10-30 11:01] LABS: Fibrinogen 725 mg/dl (184-400)
[2023-10-30] MEDS: HEPARIN IV BOLUS 2,500 UNITS in SYRINGE 0 ML IV ONE (13:00)
--- NOTE | 2023-10-30 17:36 | Billing Data ---
Date of Service October 30, 2023 Coding Level of Care Code 53484 SUB INP/OBS CARE MIN
[2023-10-30] MEDS ORDERED: NICOTINE POLACRILEX 2 MG GUM MT PRN (18:25)
[2023-10-30] MEDS ORDERED: Nursing to Pharmacy Communication SCH (19:15)
[2023-10-30 19:31] LABS: ANTI-Xa, UFH(UnfractionatedHep < 0.10 IU/ml (0.3-0.7)
[2023-10-30] MEDS: HEPARIN SOD (PORCINE) 1000 UNIT/ML IV ONE (20:55)
--- NOTE | 2023-10-30 21:56 | Electrocardiogram Report ---
Test Reason : Blood Pressure : */* mmHG Vent. Rate : 85 BPM Atrial Rate : 85 BPM P-R Int : 150 ms QRS Dur : 92 ms QT Int : 362 ms P-R-T Axes : 49 29 22 degrees QTcB Int : 430 ms Normal sinus rhythm Normal ECG No previous ECGs available Confirmed by Diaz Corrales ([id number]) on 10/30/2023 9:55:50 PM Referred By: Cosme Arredondo Confirmed By: Diaz Corrales
[2023-10-31 02:54] LABS: Basophils # (auto) 0.03 K/uL (0.00-0.20); Basophils % (auto) 0.3 %; Eosinophils # (auto) 0.14 K/uL (0.00-0.50); Eosinophils % (auto) 1.5 %; Hematocrit (blood only) 38.8 % (42.0-52.0); Hemoglobin 13.1 g/dl (14.0-18.0); Immature Granulocytes # (auto) 0.08 K/uL (0.01-0.20); Immature Granulocytes % (auto) 0.9 %; Lymphocytes # (auto) 2.68 K/uL (1.20-3.40); Lymphocytes % (auto) 29.2 %; Mean Corpuscular Hgb Conc 33.8 g/dL (32.0-36.0); Mean Platelet Volume 9.3 fL (9.4-12.4); Monocytes % (auto) 10.9 %; Neutrophils # (auto) 5.24 K/uL (1.40-6.50); Neutrophils % (auto) 57.2 %; Platelet Count 279 K/uL (130-400); RDW Coefficient of Variation 11.5 % (11.5-14.5); Red Blood Count 4.36 M/uL (4.70-6.10); White Blood Count 9.17 K/ul (4.8-10.8)
[2023-10-31 02:58] LABS: Anion Gap 9 (3-11); BUN Creatinine Ratio 10.9 (10-20); Blood Urea Nitrogen 7 mg/dl (6-23); Calcium 9.1 mg/dl (8.6-10.3); Carbon Dioxide 25 mmol/L (21-32); Chloride 103 mmol/L (98-107); Creatinine Clr Calc Pharmacy 231.2 ml/min; Est GFR (African American) > 150.0 ml/min; Est GFR (Non-African American) 135.1 ml/min; Glucose 97 mg/dl (70-99(Fasting)); Potassium 3.8 mmol/L (3.5-5.1); Sodium 137 mmol/L (136-145)
[2023-10-31 03:44] LABS: ANTI-Xa, UFH(UnfractionatedHep 0.21 IU/ml (0.3-0.7)
[2023-10-31] MEDS: ACETAMINOPHEN 325 MG TAB PO PRN (08:16)
[2023-10-31] MEDS: RIVAROXABAN 15 MG TAB PO SCH (09:55)
[2023-10-31 10:35] LABS: ANTI-Xa, UFH(UnfractionatedHep < 0.10 IU/ml (0.3-0.7)
--- NOTE | 2023-10-31 10:39 | Hospitalist Progress Note ---
Date of Service October 31, 2023 Assessment & Plan (1) Acute cor pulmonale: (2) Saddle pulmonary embolus: (3) Pulmonary hypertension: (4) DVT of lower limb, acute: Plan Patient is a 28 y/o M who was admitted due to management of saddle PE after limited mobility s/p laceration in leg. Saddle pulmonary embolus // Multiple b/l PE VSS Thrombolyzed due to developing hypotension Father with unprovoked blood clots x2; work up for coagulation disorder pending (save for lupus anticoagulant) - Heparin gtt stopped today and Xarelto 15 mg bid started today, and to change to 20 mg daily after 21 days. Plan for 6 months of anticoagulation - Downgraded yesterday, to change to PCU today 2) Lower extremity DVT, left lower leg - Per US it involves distal common femoral vein, superficial femoral vein, popliteal vein Did have leg immobilized 2/2 injury and went for 2-hour ride up to his camp and back. Plan DVT prophylaxis: Xarelto Diet: Regular CODE STATUS: Full code Disposition: Discharge back home with Xarelto likely by tomorrow Admission and Anticipated Discharge Date Admission Date: October 29, 2023 Supervising Physician Co-Signing Physician Notes I personally examined the patient and verified all francisco points of history and exam, discussed case, and agree with decision making with Dr Cummings Feels pretty good. No chest pain no shortness of breath. Extensive discussions on DVT/PE, pathophysiology, management. Answered all questions to the best my ability and to their satisfaction. vitals noted nad heent nc at mmm breathing unlabored no accessory muscles good effort no focal neuro deficits saddle PE w hemodynamic instability now much more stable post thrombolytics - Transitioned to DOAC with Xarelto given coupons, likely availability of samples, and medication going generic by the end of the year. Insurance coverage is being sought, although if it is not able to be procured, also have paperwork to set him up for financial assistance with [employer]. At any point Xarelto becomes unaffordable, we checked on GoodRx and generic Pradaxa is about $60 a month which he notes is quite affordable. Clinically overall improving. Extensive discussions outlining VTE overall. otherwise as above Subjective Patient bedside and found to be awake alert and oriented in all spheres, sitting up, in no acute distress. Patient denies having any shortness of breath or chest pain at the time and refers some improvement with regards to initial symptoms. No fevers, chills, nausea or vomiting, abdominal pain, hematuria, or any other systemic symptoms. Physical Exam Physical Exam: GENERAL: Awake alert and oriented all spheres, afebrile, no acute distress CV: Regular rate and rhythm, no rubs murmurs or gallops appreciated PULM: CTA bilaterally, normal respiratory effort, no respiratory distress, breathing on room air GI: Soft, nontender, nondistended EXTREMITIES: No swelling in bilateral lower extremities, abrasions in anterior lower leg that are healing Results & Data Results & Data Vital Signs (Past 12 Hours) Vital Signs Temp Pulse Pulse Resp BP BP Pulse Ox 10/31/23 08:09 36.7 C 71 20 141/78 H 98 10/31/23 08:00 10/31/23 06:49 53 L 10/31/23 06:15 56 L 26 H 10/31/23 04:33 64 28 H 10/31/23 03:51 56 L 26 H 10/31/23 03:49 36.8 C 15 98 10/31/23 03:47 123/70 10/31/23 03:47 123/70 10/31/23 03:18 59 L 29 H 10/31/23 02:06 63 24 10/31/23 00:09 65 27 H 10/30/23 23:52 36.7 C 10/30/23 23:41 67 10/30/23 23:27 67 31 H 10/30/23 23:14 36.8 C 15 98 10/30/23 23:12 110/58 L 10/30/23 23:12 110/58 L 10/30/23 23:09 74 28 H O2 Del Method 10/31/23 08:09 Room Air 10/31/23 08:00 Room Air 10/31/23 06:49 10/31/23 06:15 10/31/23 04:33 10/31/23 03:51 10/31/23 03:49 Room Air 10/31/23 03:47 10/31/23 03:47 10/31/23 03:18 10/31/23 02:06 10/31/23 00:09 10/30/23 23:52 10/30/23 23:41 10/30/23 23:27 10/30/23 23:14 Room Air 10/30/23 23:12 10/30/23 23:12 10/30/23 23:09 Resident Activity Tracking Resident Involvement: Resident Care Provided Care Provided: Adult Hospital Medicine
--- NOTE | 2023-10-31 17:55 | Billing Data ---
Date of Service October 31, 2023 Coding Level of Care Code 80438 SUB INP/OBS CARE MIN
--- NOTE | 2023-10-31 17:55 | Billing Data ---
Date of Service October 31, 2023 Coding Level of Care Code 93924 SUB INP/OBS CARE MIN
[2023-11-01 04:58] LABS: Basophils # (auto) 0.04 K/uL (0.00-0.20); Basophils % (auto) 0.4 %; Eosinophils # (auto) 0.12 K/uL (0.00-0.50); Eosinophils % (auto) 1.2 %; Hematocrit (blood only) 38.7 % (42.0-52.0); Hemoglobin 13.1 g/dl (14.0-18.0); Immature Granulocytes # (auto) 0.06 K/uL (0.01-0.20); Immature Granulocytes % (auto) 0.6 %; Lymphocytes # (auto) 2.18 K/uL (1.20-3.40); Lymphocytes % (auto) 21.8 %; Mean Corpuscular Hemoglobin 29.9 pg (25.0-34.0); Mean Corpuscular Hgb Conc 33.9 g/dL (32.0-36.0); Mean Corpuscular Volume 88.4 fL (80.0-100.0); Mean Platelet Volume 9.3 fL (9.4-12.4); Monocytes # (auto) 1.16 K/uL (0.11-0.59); Monocytes % (auto) 11.6 %; Neutrophils # (auto) 6.46 K/uL (1.40-6.50); Neutrophils % (auto) 64.4 %; Platelet Count 325 K/uL (130-400); RDW Coefficient of Variation 11.3 % (11.5-14.5); RDW Standard Deviation 36.6 fL (36.4-46.3); Red Blood Count 4.38 M/uL (4.70-6.10); White Blood Count 10.02 K/ul (4.8-10.8)
[2023-11-01 05:10] LABS: Anion Gap 9 (3-11); BUN Creatinine Ratio 10.8 (10-20); Blood Urea Nitrogen 7 mg/dl (6-23); Calcium 9.5 mg/dl (8.6-10.3); Carbon Dioxide 24 mmol/L (21-32); Chloride 103 mmol/L (98-107); Creatinine Clr Calc Pharmacy 240.5 ml/min; Est GFR (African American) > 150.0 ml/min; Est GFR (Non-African American) 134.3 ml/min; Glucose 92 mg/dl (70-99(Fasting)); Magnesium 2.1 mg/dl (1.7-2.4); Sodium 136 mmol/L (136-145)
[2023-11-01 07:45] VITALS: BP 137/75; RESP 20; TEMP 98.6; O2SAT 98
--- NOTE | 2023-11-01 10:49 | Discharge Summary ---
Date of Service November 01, 2023 Admission HPI Per Admitting Provider Gen is a 28-year-old male with unremarkable past medical history who presents to the ER for suspected PEs. Has had left lower extremity pain for several weeks and had a complicated laceration to his left knee at the end of August. CT shows numerous bilateral pulmonary emboli including a saddle PE with moderate to extensive clot burden. No pulmonary infarct. No CT evidence of heart strain. Troponin is normal. He is not hypotensive +History of DVT/PE on fathers side of the family. Not sure about mothers side. - Vaping nicotine and weed. No cigarette use. Vapes daily. ETOH previously daily, now rarely socially. No hx withdrawal - After his leg injury and stitches did hav ea 2 hour trip to [place] the end of August. Has had the leg relatively immobilized until this past week when he tried to walk on it. Has noticed discomfort and swelling in the calf. No dyspnea. No inspiratory pain. He reports he has not had any limiting shortness of breath at any point, the cause of his presentation was actually bc WEnt to his PCP for severe LE pain, had a US with clot and was referred to the ER Medical History: Reviewed Medications: Reviewed. No home meds. Only takes tylenol Surgical History: Reviewed Family history: Reviewed Allergies: Reviewed. NKDA Code Status: Full Admission Exam Per Admitting Provider General: A&Ox3. NAD. Cooperative. HEENT: Atraumatic, normocephalic. Pulm: CTAB A&P. -wheezes, -rales, -rhonchi. Symmetrical chest rise. No increased work of breathing. No respiratory distress. Cardiac: RRR, -mrg. Radial pulses intact and symmetrical. Abdominal: Nontender, nondistended, soft. BS present. Left lower extremity is with a stable repair of prior wound, 2 areas of scab. No surrounding warmth, tenderness or erythema. There is mild left lower extremity swelling. Principal Diagnosis Saddle PE Discharge Exam GENERAL: Awake alert and oriented all spheres, afebrile, no acute distress CV: Regular rate and rhythm, no rubs murmurs or gallops appreciated PULM: CTA bilaterally, normal respiratory effort, no respiratory distress, breathing on room air GI: Soft, nontender, nondistended EXTREMITIES: No swelling in bilateral lower extremities, abrasions in anterior lower leg that are healing Discharge Data Allergies Allergy/AdvReac Type Severity Reaction Status Date / Time No Known Allergies Allergy Verified 10/29/23 19:08 Consultations 10/29/23 18:45 ED Decision to Admit Stat 10/29/23 21:06 Consult Piano Stringer Routine Ordered Studies 10/29/23 16:53 CT angio chest PE protocol Stat Hospital Course (1) Acute cor pulmonale: (2) Saddle pulmonary embolus: (3) Pulmonary hypertension: (4) DVT of lower limb, acute: Plan Patient is a 28 y/o M who was admitted due to management of saddle PE after limited mobility s/p laceration in leg. Saddle pulmonary embolus // Multiple b/l PE -- Acute, stable VSS and patient asymptomatic at the time Thrombolyzed due to developing hypotension Father with unprovoked blood clots x2; work up for coagulation disorder pending (save for lupus anticoagulant) - Tolerating Xarelto 15 mg bid well, no signs of bleeding; plan for 15 mg bid dosing for 21 days followed by 20 mg daily; plan for 6 months go therapy; discount cards for Xarelto given and script sent - Will discharge home today Lower extremity DVT, left lower leg -- Acute, stable - Per US it involves distal common femoral vein, superficial femoral vein, popliteal vein Xarelto as management Patient found fit and stable for sischarge today. Total Time Total Time Spent Total Time Spent (In Minutes): <30 Discharge Plan Discharge Items Patient Disposition: Home - Self-Care Reason For Visit: SADDLE PE Discharge Diagnosis: saddle PE Condition on Discharge: Serious Activity: Per Instructions section Non-emergency contact: Primary Care Provider Call non-emergency contact if: your symptoms worsen Follow-up/Referrals: Brendan Scott MD [Primary Care Provider] - Diet: Regular Addtl Attending Provider Instructions: You were admitted to the hospital after a large blood clot was found in your lungs. Because your blood pressure was decreasing likely as a consequence to the blood clot, we gave you a medication that would help with breaking this blood clot down. After this, we started you on a new medication called Xarelto, which is a blood thinner. You should continue to take this medication for 6 months unless told otherwise by your primary care provider. You should take Xarelto 15 mg two times a day with meals for the next 20 days, then for every day after that, you should take Xarelto 20 mg once a day with meals. This medication may increase your risk of bleeding. Therefore, if you notice blood in your urine, blood in your stool, coughing up blood, or excess bleeding from a wound, please let your primary care provider know, and if it is severe, please go to the Emergency Department so they can evaluate you. We advise you make an appointment with your primary care provider in 1 weekafter discharge for follow up. A discharge summary will be sent to your primary care physician to ensure continuity of care. Please bring this discharge summary with you to your next office appointment so that your provider can review it at that time. Follow-up appointments: Make a follow-up appointment with your PCP within the next week. It is very important that you follow up with them shortly after discharge from the hospital. Medications: Your medication list has been reviewed and reconciled upon discharge to ensure accuracy and continuity of care. An updated list of all your medications is included with your hospital discharge paperwork. Please review this list closely, and make note of any changes. Take your medications as instructed; do not skip a dose of your medicines. Make sure all of your doctors know every medicine you are taking (including [id number] medicines, vitamins, and supplements). Call your primary care provider before taking any new medicines (including over- the-counter medicines, vitamins, and supplements), because some of these may interact with your current medications, or may make your symptoms worse. Tell your primary care provider if you cannot afford your medications. CONTACT YOUR PRIMARY CARE PROVIDER if you experience any of the following: Worsening of symptoms Fever, chills, or fatigue Difficulty following your treatment plan, or difficulty taking medications CALL 911 OR GO TO THE EMERGENCY DEPARTMENT if you experience any of the following: Sudden, severe abdominal pain or nausea/vomiting Severe chest pain, or chest pain that radiates (moves) to your jaw or arm Sudden, severe shortness of breath or difficulty breathing Thank you for allowing us to participate in your care. Pending Studies at Discharge: Yes (coagulation work up) Stand-Alone Forms: [employer], Work/School Release, Smoking Cessation Medications and DC Order Prescriptions: New Xarelto 20 mg tablet 20 mg PO DAILY Qty: 30 0RF Rx Instructions: must administer with a meal/food Xarelto DVT-PE Treat 30d Start 15 mg (42)- 20 mg (9) tablets,dose pack See Rx Instructions .ROUTE .COMPLEX Qty: 51 0RF Rx Instructions: take one-15 mg tablet twice daily for 21 days, then one-20 mg tablet once daily; must take with meal/food Continued Thc Product 1 dose inhalation UD PRN (Reason: Pain/SLEEP) Patient Comments: THC PRODUCT, LIKE A VAPE, PEN WITH OIL IN IT Rx Instructions: VAPS acetaminophen [Tylenol Extra Strength] 500 mg Tablet 1,500 mg PO Q6H PRN (Reason: Pain) Discharge Orders: Discharge Order (Routine); Ordered 11/01/23 Ordered By: Ernestina Rodriguez/Other Patient Handouts: Rivaroxaban Oral Tablet, ED Work Release Form Admission Data Admit Date/Time: 10/29/23 19:44 Attending Provider: Dominic Alegria Admit Provider: Ubaldo Estevez Primary Care Provider: Brendan Scott Other Providers: Ubaldo Estevez; Darrian Hills Other Interventions: Discharge Summary Assessment (RN) Last Done: 11/01/23 11:18 Supervising Physician Co-Signing Physician Notes I personally examined the patient and verified all francisco points of history and exam, discussed case, and agree with decision making with Dr Cummings Feels pretty good. Extensive discussions ongoing about management. Called pharmacy personally to ensure they had 15 mg Xareltoand pharmacist was able to process coupon to ensure first prescription had 0 cost. Answered all questions to the best my ability and to their satisfaction. vitals noted nad heent nc at mmm breathing unlabored no accessory muscles good effort no focal neuro deficits saddle PE w hemodynamic instability now much more stable post thrombolytics - Transitioned to DOAC with Xarelto given coupons, likely availability of samples, and medication going generic by the end of the year. Insurance coverage is being sought, although if it is not able to be procured, also have paperwork to set him up for financial assistance with [employer] [facility]. At any point Xarelto becomes unaffordable, we checked on GoodRx and generic Pradaxa is about $60 a month which he notes is quite affordable. Clinically overall improving. Extensive discussions outlining VTE overall. safe/stable for home Resident Activity Tracking Resident Involvement: Resident Care Provided Care Provided: Adult Hospital Medicine
[2023-11-01 11:20] VITALS: PULSE 71
--- NOTE | 2023-11-01 17:01 | Billing Data ---
Date of Service November 01, 2023 Coding Level of Care Code 55147 IN/OBS DISCH 30 MIN/LESS
[2023-11-04 00:23] LABS: Anti Cardiolipin Ab IgG <2.0 GPL-U/mL; Anti Cardiolipin Ab IgM <2.0 MPL-U/mL
== END 2023-11-01 12:39 | disposition home or self-care (01) | DRG 175 ==
LOC: SUATTDRO → ED 16:44 → SUATTDRO 19:44 → 1E 19:44